=== PATIENT | female | born 1945 | race Caucasian/White ===

== ENCOUNTER 2018-03-13 05:35 | Day surgery (SDC) | payer MEDICARE ==
[~2018-03-13] VITALS: Ht 152.4 cm; Wt 68.1 kg
[~2018-03-13 05:35] MED LIST: ACET-2743 PO; AEC81 PO; ALPR0.5T8 PO; CA C-5 PO; GABA-531 PO; SIMV20TA6 PO; SODIUM CHLORIDE 0.9% 1000ML 1,000 ML IV ONE
[2018-03-13 05:53] VITALS: BP 158/68
[2018-03-13] MEDS ORDERED: GLYCOPYRROLATE 0.2 MG/ML 5 ML VIAL ONE (06:29)
[2018-03-13] MEDS ORDERED: LIDOCAINE HCL-MPF 2% 5ML VIAL ONE (06:29)
[2018-03-13] MEDS ORDERED: PROPOFOL 10 MG/ML 20ML VIAL IV ONE (06:29)
[2018-03-13 07:03] VITALS: BP 171/91
[2018-03-13 07:10] VITALS: BP 120/66
[2018-03-13 07:20] VITALS: BP 119/69
[2018-03-13 07:30] VITALS: BP 133/61
[2018-03-13 07:40] VITALS: BP 149/62
== END 2018-03-13 07:40 | disposition home or self-care (01) ==
LOC: ENDO 05:35 → DAH 05:35 → ENDO 07:40
PROVIDERS: ATTEND Internal Medicine
DX: R93.5 Abnormal findings on diagnostic imaging of other abdominal regions, including retroperitoneum (principal); I10 Essential (primary) hypertension; J44.9 Chronic obstructive pulmonary disease, unspecified; M81.0 Age-related osteoporosis without current pathological fracture; K58.9 Irritable bowel syndrome, unspecified; M41.9 Scoliosis, unspecified; Z79.899 Other long term (current) drug therapy; Z98.890 Other specified postprocedural states; Z82.49 Family history of ischemic heart disease and other diseases of the circulatory system; E78.5 Hyperlipidemia, unspecified; Z88.0 Allergy status to penicillin; Z88.8 Allergy status to other drugs, medicaments and biological substances
CPT/HCPCS: 43238; 88173; 88305; 93005; A4215; J2704; J3490 ×2; J7030; 43232